=== PATIENT | male | born 2000 | race Caucasian/White ===

== ENCOUNTER 2018-07-15 12:41 | Emergency (ER) | payer SELFPAY ==
[~2018-07-15] VITALS: Ht 175.3 cm; Wt 74.8 kg
[2018-07-15 12:53] VITALS: Ht 175.3 cm; Wt 74.8 kg
[2018-07-15 15:53] VITALS: BP 143/79
== END 2018-07-15 16:36 | disposition home or self-care (01) ==
LOC: ED 12:41
DX: S53.124A Posterior dislocation of right ulnohumeral joint, initial encounter (principal); S81.811A Laceration without foreign body, right lower leg, initial encounter; W18.39XA Other fall on same level, initial encounter; Y93.89 Activity, other specified; Y92.89 Other specified places as the place of occurrence of the external cause; Y99.8 Other external cause status
CPT/HCPCS: 90715; J2001; J3010; J3490; J7030; Q0092